=== PATIENT | male | born 1985 | race American Indian/Alaskan Native ===

== ENCOUNTER 2019-01-08 16:27 | Emergency (ER) | payer SELFPAY ==
[2019-01-08 17:10] VITALS: BP 140/96
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
[2019-01-08 18:14] LABS: Bilirubin,Urine NEG (Negative); Blood,Urine NEG (Negative); Color,Urine Straw (Yellow); Protein,Urine <15 mg/dL mg/dL (Negative); RBC,Urine < 1.0 /HPF (0.0-6.0); Urobilinogen,Urine < 2.0 mg/dL (<2.0); WBC,Urine < 1.0 /HPF (0.0-6.0)
[2019-01-08] MEDS ORDERED: ULTRAM PO ONE (18:47)
--- NOTE | 2019-01-08 18:51 | Ultrasound Report ---
PROCEDURE: Scrotal ultrasound. TECHNIQUE: Real-time vogt-scale and color flow Doppler sonography in multiple planes of the scrotum, testicles, and epididymes was performed. Velocity spectral waveform analysis and color Doppler imagi ng of the arterial inflow and venous outflow of the testicles was performed with image documentation. HISTORY: Bilateral testicular pain. COMPARISONS: None. FINDINGS: Both testes have uniform echogenicity. There are no focal masses. There is normal testicular blood fl ow demonstrated bilaterally with color flow imaging and Doppler spectral analysis. Both epididymal he ads appear normal. There are small bilateral varicoceles. There is a small right hydrocele. IMPRESSION: Small bilateral varicoceles. Small right hydrocele. Normal bilateral testicular blood fl ow. This document is electronically signed by Jacek Brown MD., Jan 08 2019 06:49:47 PM ET
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
== END 2019-01-08 20:05 | disposition home or self-care (01) ==
LOC: ED 16:27
DX: N43.3 Hydrocele, unspecified (principal); I10 Essential (primary) hypertension; E11.9 Type 2 diabetes mellitus without complications; D57.3 Sickle-cell trait; Z79.899 Other long term (current) drug therapy
CPT/HCPCS: 81001; 82962; 93975

== ENCOUNTER 2020-12-18 14:56 | Emergency (ER) | payer OTHER ==
[2020-12-18] MEDS ORDERED: TETANUS,DIPH,PERTUSS(ACELL) VACCINE 0.5 ML SYRINGE IM ONE (16:06)
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
[2020-12-18 16:37] LABS: Basophils % (Auto) 0.8 % (0.0-1.8); Eosinophils # (Auto) 0.1 K/mm3 (0.0-0.4); Eosinophils % (Auto) 1.1 % (0.0-4.3); Hematocrit 40.6 % (35.5-45.6); Hemoglobin 13.4 gm/dl (11.8-15.2); Lymphocytes # (Auto) 1.6 K/mm3 (1.2-5.4); Lymphocytes % (Auto) 27.6 % (13.4-35.0); Mean Corpuscular HGB Conc 33 % (32-34); Mean Corpuscular Volume 84 fl (84-94); Monocytes # (Auto) 0.4 K/mm3 (0.0-0.8); Platelet Count 156 K/mm3 (140-440); Red Blood Count 4.86 M/mm3 (3.65-5.03); Red Cell Distribution Width 15.7 % (13.2-15.2)
--- NOTE | 2020-12-18 16:41 | XRay Report ---
Right foot radiograph, 3 views. HISTORY: Cellulitis, large blister. COMPARISON: None FINDINGS: There is soft tissue swelling, greatest in the dorsum of the foot. Skin irregularity involv ing the dorsal aspect of the base of the great toe may reflect skin wound. No radiopaque foreign body is identified. No aggressive cortical destructive changes identified to suggest osteomyelitis. There are corticated osseous erosions involving the plantar lateral aspect of the fifth metatarsal and med ial aspect of the great metatarsal head and distal proximal phalanx. Findings most likely reflects se quela of gout. No acute fracture or malalignment. IMPRESSION: 1. Soft tissue swelling with suspected skin wound at the dorsal aspect of the great toe. No radiograp hic evidence of osteomyelitis. 2. Corticated osseous erosions involving the first and fifth toe most likely reflect sequela of gout. 3. No acute osseous abnormality. Signer Name: Des Cali MD Signed: 12/18/2020 4:36 PM Workstation Name: [id number]
[2020-12-18 16:57] LABS: Alanine Aminotransferase 21 units/L (7-56); Albumin 3.6 g/dL (3.9-5); BUN/Creatinine Ratio 11; Blood Urea Nitrogen 14 mg/dL (9-20); Calcium 8.9 mg/dL (8.4-10.2); Hemolysis Index 9
[2020-12-18] MEDS ORDERED: BACITRACIN ZINC OINT 28.4 GM TP ONE (19:53)
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
[2020-12-18 21:18] VITALS: BP 178/103
== END 2020-12-18 21:18 | disposition home or self-care (01) ==
LOC: ED 14:56
DX: T25.221A Burn of second degree of right foot, initial encounter (principal)
CPT/HCPCS: 36415; 80053; 85025; 90471; 90715; 99283